=== PATIENT | male | born 1945 | race Caucasian/White ===

== ENCOUNTER 2018-09-25 20:21 | Outpatient (REF) | payer MEDICARE, SELFPAY ==
[2018-09-25 21:00] LABS: COMMENT (LAB VIEW ONLY) 241.12 mg/dL; Microalb ug/mg Crea 5.6 ug/mg Cr
== END 2018-09-25 20:41 ==
LOC: NCHCN 20:21
PROVIDERS: PCP Internal Medicine; Visit Provider Internal Medicine
DX: I10 Essential (primary) hypertension (principal); E78.5 Hyperlipidemia, unspecified; E11.9 Type 2 diabetes mellitus without complications
CPT/HCPCS: 82043; 82570

== ENCOUNTER 2020-04-07 17:27 | Outpatient (REF) | payer MEDICARE, SELFPAY ==
[2020-04-07 21:01] LABS: ALT 19 U/L (16-63); AST 17 U/L (15-37); Albumin 3.7 g/dL (3.4-5.0); Alkaline Phosphatase 56 U/L (46-116); Anion Gap 7.2 mmol/L (3-11); BUN 10 mg/dL (7-18); Bilirubin, Total 0.5 mg/dL (0.2-1.0); CO2 29.8 mmol/L (21.0-32.0); CREATININE 0.93 mg/dL (0.70-1.30); Calcium 8.8 mg/dL (8.5-10.1); Chloride 102 mmol/L (98-107); Glucose 117 mg/dL (74-106); Potassium 4.2 mmol/L (3.5-5.1); Sodium 139 mmol/L (136-145); TSH 0.95 uIU/mL (0.36-3.74); Total Protein 6.6 g/dL (6.4-8.2)
== END 2020-04-07 17:47 ==
LOC: NCHCN 17:27
PROVIDERS: PCP Internal Medicine; Visit Provider Internal Medicine
DX: E11.9 Type 2 diabetes mellitus without complications (principal); G47.00 Insomnia, unspecified; G47.33 Obstructive sleep apnea (adult) (pediatric); E66.9 Obesity, unspecified
CPT/HCPCS: 80053; 84443

== ENCOUNTER 2020-07-19 16:56 | Outpatient (REF) | payer MEDICARE, SELFPAY ==
[2020-07-19 19:15] LABS: HCT 43.6 % (40.0-50.0); HGB 14.1 g/dL (13.5-17.5); MCH 30.5 pg (27.0-33.0); MCHC 32.3 % (32.0-36.0); MCV 94.4 fL (80-95); MPV 10.5 fL (8.0-11.0); Platelet Count 304 10^3/uL (130-400); RBC 4.62 10^6/uL (4.36-5.78); RDW 14.1 % (11.8-14.1); RDW-SD 48.9 fL; WBC 9.59 10^3/uL (4.4-10.8)
[2020-07-19 19:19] LABS: NT-proBNP 189 pg/mL (<300)
[2020-07-19 19:46] LABS: D-Dimer 586 ng/mlFEU (<500)
== END 2020-07-19 17:16 ==
LOC: NCHCN 16:56
PROVIDERS: PCP Internal Medicine; Visit Provider Internal Medicine
DX: R06.09 Other forms of dyspnea (principal); R00.0 Tachycardia, unspecified
CPT/HCPCS: 85027; 83880; 85379

== ENCOUNTER 2021-02-04 21:13 | Outpatient (REF) | payer MEDICARE, SELFPAY ==
[2021-02-04 19:43] LABS: COMMENT (LAB VIEW ONLY) 177.69 mg/dL; Microalb ug/mg Crea 5.5 ug/mg Cr
== END 2021-02-04 21:14 | disposition home or self-care (01) ==
LOC: NCHCN 21:13
PROVIDERS: PCP Internal Medicine; Visit Provider Internal Medicine
DX: R00.0 Tachycardia, unspecified (principal); G47.33 Obstructive sleep apnea (adult) (pediatric); I10 Essential (primary) hypertension; E11.9 Type 2 diabetes mellitus without complications
CPT/HCPCS: 82043; 82570

== ENCOUNTER 2021-08-04 12:04 | Outpatient (REF) | payer MEDICARE, SELFPAY ==
[2021-08-04 19:30] LABS: ALT 20 U/L (16-63); Anion Gap 10.9 mmol/L (3-11); BUN 15 mg/dL (7-18); CO2 29.1 mmol/L (21.0-32.0); CREATININE 1.3 mg/dL (0.70-1.30); Calculated LDL 74 mg/dL (<100); Chloride 102 mmol/L (98-107); Cholesterol 153 mg/dL (<200); Estimated GFR 53.82 (mL/min/1.73m2); Glucose 120 mg/dL (74-106); HDL Cholesterol 45 mg/dL (40-60); Potassium 4.4 mmol/L (3.5-5.1); Sodium 142 mmol/L (136-145); Triglyceride 170 mg/dL (<150)
== END 2021-08-04 12:05 | disposition home or self-care (01) ==
LOC: NCHCN 12:04
PROVIDERS: PCP Internal Medicine; Visit Provider Internal Medicine
DX: E11.9 Type 2 diabetes mellitus without complications (principal); R00.0 Tachycardia, unspecified; E66.9 Obesity, unspecified
CPT/HCPCS: 80048; 80061; 84460

== ENCOUNTER 2021-09-29 19:04 | Outpatient (REF) | payer MEDICARE, SELFPAY ==
[2021-09-29 20:02] LABS: ALT 19 U/L (16-63); AST 12 U/L (15-37); Albumin 3.9 g/dL (3.4-5.0); Alkaline Phosphatase 78 U/L (46-116); Anion Gap 9.7 mmol/L (3-11); BUN 16 mg/dL (7-18); Bilirubin, Total 0.4 mg/dL (0.2-1.0); CO2 28.3 mmol/L (21.0-32.0); CREATININE 1.1 mg/dL (0.70-1.30); Calcium 9.4 mg/dL (8.5-10.1); Chloride 102 mmol/L (98-107); Glucose 119 mg/dL (74-106); Potassium 4.3 mmol/L (3.5-5.1); Sodium 140 mmol/L (136-145); Total Protein 7.1 g/dL (6.4-8.2); Vitamin B12 201 pg/mL (193-986)
== END 2021-09-29 19:05 | disposition home or self-care (01) ==
LOC: NCHCN 19:04
PROVIDERS: PCP Internal Medicine; Visit Provider Internal Medicine
DX: G31.84 Mild cognitive impairment of uncertain or unknown etiology (principal)
CPT/HCPCS: 80053; 82607

== ENCOUNTER 2021-10-31 00:21 | Outpatient (CLI) | payer MEDICARE, SELFPAY ==
--- NOTE | 2021-10-31 | DI.MRI_ITS ---
Exam(s) MR BRAIN WO EXAM: MR BRAIN WO CLINICAL HISTORY: ALZHEIMERS DISEASE,G30.9 TECHNIQUE: Multiplanar multisequence MRI of the brain was performed. COMPARISON: No exams were available for comparison FINDINGS: There is moderate to severe diffuse cerebral atrophy. No intracranial hemorrhage, mass or acute infa rct is seen. The ventricular size is normal for degree of atrophy. Minimal there are minimal white matter changes of small vessel disease. There is sinus mucosal thickening and thickening of the nasa l mucosa.. No air-fluid levels. The vascular flow voids appear intact. IMPRESSION: Atrophy. No acute abnormality. DATA REPOSITORY:
== END 2021-10-31 00:41 ==
PROVIDERS: PCP Internal Medicine; Visit Provider Internal Medicine
DX: G30.8 Other Alzheimer's disease (principal); G31.89 Other specified degenerative diseases of nervous system
CPT/HCPCS: 70551

== ENCOUNTER 2022-08-10 16:36 | Outpatient (REF) | payer MEDICARE, SELFPAY ==
[2022-08-10 19:11] LABS: ALT 22 U/L (16-63); Anion Gap 10.9 mmol/L (3-11); BUN 12 mg/dL (7-18); CO2 28.1 mmol/L (21.0-32.0); CREATININE 1.2 mg/dL (0.70-1.30); Calcium 9.4 mg/dL (8.5-10.1); Calculated LDL 106 mg/dL (<100); Chloride 100 mmol/L (98-107); Cholesterol 178 mg/dL (<200); Estimated GFR 62.67 (mL/min/1.73m2); Glucose 251 mg/dL (74-106); HDL Cholesterol 43 mg/dL (40-60); Potassium 3.8 mmol/L (3.5-5.1); Sodium 139 mmol/L (136-145); Triglyceride 147 mg/dL (<150)
[2022-08-10 19:36] LABS: Creatine Kinase 129 U/L (39-308)
== END 2022-08-10 16:37 | disposition home or self-care (01) ==
LOC: NCHCN 16:36
PROVIDERS: PCP Internal Medicine; Visit Provider Internal Medicine
DX: I10 Essential (primary) hypertension (principal); E11.9 Type 2 diabetes mellitus without complications; G30.9 Alzheimer's disease, unspecified
CPT/HCPCS: 80048; 80061; 82550; 84460

== ENCOUNTER 2023-05-23 17:32 | Outpatient (REF) | payer MEDICARE, SELFPAY ==
[2023-05-23 21:50] LABS: HCT 46.1 % (40.0-50.0); HGB 15.1 g/dL (13.5-17.5); MCH 27.9 pg (27.0-33.0); MCHC 32.8 % (32.0-36.0); MCV 85 fL (80-95); MPV 10.4 fL (8.0-11.0); Platelet Count 339 10^3/uL (130-400); RBC 5.42 10^6/uL (4.36-5.78); RDW-SD 43.1 fL; WBC 11.41 10^3/uL (4.4-10.8)
[2023-05-23 22:09] LABS: Anion Gap 6.7 mmol/L (3-11); BUN 16 mg/dL (7-18); CO2 29.3 mmol/L (21.0-32.0); Calcium 9.2 mg/dL (8.5-10.1); Calculated LDL 62 mg/dL (<100); Chloride 103 mmol/L (98-107); Cholesterol 124 mg/dL (<200); Glucose 138 mg/dL (74-106); HDL Cholesterol 42 mg/dL (40-60); Potassium 3.6 mmol/L (3.5-5.1); Sodium 139 mmol/L (136-145); Triglyceride 101 mg/dL (<150)
[2023-05-23 22:48] LABS: COMMENT (LAB VIEW ONLY) 111.16 mg/dL; Microalb ug/mg Crea 4.3 ug/mg Cr
== END 2023-05-23 17:33 | disposition home or self-care (01) ==
LOC: NCHCN 17:32
PROVIDERS: PCP Internal Medicine; Visit Provider Internal Medicine
DX: I10 Essential (primary) hypertension (principal); E78.5 Hyperlipidemia, unspecified; E11.9 Type 2 diabetes mellitus without complications
CPT/HCPCS: 80048; 80061; 85027; 82043; 82570

== ENCOUNTER 2023-12-28 11:31 | Outpatient (REF) | payer MEDICARE, SELFPAY ==
[2023-12-28 19:48] LABS: ALT 23 U/L (16-63); AST 19 U/L (15-37); Albumin 3.6 g/dL (3.4-5.0); Alkaline Phosphatase 128 U/L (46-116); Anion Gap 10.4 mmol/L (3-11); BUN 11 mg/dL (7-18); Bilirubin, Total 0.6 mg/dL (0.2-1.0); CO2 24.6 mmol/L (21.0-32.0); Calculated LDL 77 mg/dL (<100); Chloride 103 mmol/L (98-107); Cholesterol 143 mg/dL (<200); Estimated GFR 77.52 (mL/min/1.73m2); Glucose 356 mg/dL (74-106); HDL Cholesterol 42 mg/dL (40-60); Potassium 4.3 mmol/L (3.5-5.1); Sodium 138 mmol/L (136-145); Total Protein 7.4 g/dL (6.4-8.2); Triglyceride 121 mg/dL (<150)
== END 2023-12-28 11:32 | disposition home or self-care (01) ==
LOC: NCHCN 11:31
PROVIDERS: PCP Internal Medicine; Visit Provider Internal Medicine
DX: I10 Essential (primary) hypertension (principal)
CPT/HCPCS: 80053; 80061

== ENCOUNTER 2024-07-31 10:54 | Outpatient (REF) | payer MEDICARE, SELFPAY ==
[2024-07-31 19:40] LABS: COMMENT (LAB VIEW ONLY) 99.14 mg/dL; Microalb ug/mg Crea 4.6 ug/mg Cr
== END 2024-07-31 10:55 | disposition home or self-care (01) ==
LOC: NCHCN 10:54
PROVIDERS: PCP Internal Medicine; Visit Provider Internal Medicine
DX: I10 Essential (primary) hypertension (principal)
CPT/HCPCS: 82043; 82570

== ENCOUNTER 2024-12-12 16:22 | Outpatient (REF) | payer MEDICARE, SELFPAY ==
[2024-12-12 19:16] LABS: ALT 13 U/L (16-63); AST 17 U/L (15-37); Albumin 3.4 g/dL (3.4-5.0); Alkaline Phosphatase 118 U/L (46-116); Anion Gap 5.3 mmol/L (3-11); BUN 10 mg/dL (7-18); Bilirubin, Total 0.5 mg/dL (0.2-1.0); CO2 31.7 mmol/L (21.0-32.0); Calcium 9.5 mg/dL (8.5-10.1); Calculated LDL 55 mg/dL (<100); Chloride 105 mmol/L (98-107); Cholesterol 109 mg/dL (<200); Estimated GFR 77.04 (mL/min/1.73m2); Glucose 87 mg/dL (74-106); HDL Cholesterol 41 mg/dL (>or=40); Potassium 4.8 mmol/L (3.5-5.1); Sodium 142 mmol/L (136-145); Total Protein 7.6 g/dL (6.4-8.2); Triglyceride 68 mg/dL (<150)
[2024-12-12 19:29] LABS: COMMENT (LAB VIEW ONLY) 150.87 mg/dL; Microalb ug/mg Crea 4.6 ug/mg Cr
[2024-12-14 10:10] LABS: HIV-1/2 Ag & Ab Screen Negative (Negative)
[2024-12-15 10:28] LABS: Hepatitis C Ab w Rflx HCV PCR Negative (Negative)
== END 2024-12-12 16:23 | disposition home or self-care (01) ==
LOC: NCHCN 16:22
PROVIDERS: PCP Internal Medicine; Visit Provider Internal Medicine
DX: E11.9 Type 2 diabetes mellitus without complications (principal); I10 Essential (primary) hypertension; E78.5 Hyperlipidemia, unspecified; Z11.4 Encounter for screening for human immunodeficiency virus [HIV]
CPT/HCPCS: 80053; 80061; 86803; 87389; 82043; 82570

== ENCOUNTER 2025-06-24 18:46 | Outpatient (REF) | payer MEDICARE, SELFPAY ==
[2025-06-24 20:30] LABS: HCT 35.3 % (40.0-50.0); HGB 10.4 g/dL (13.5-17.5); MCH 20.8 pg (27.0-33.0); MCHC 29.5 % (32.0-36.0); Platelet Count 373 10^3/uL (130-400); RBC 5.01 10^6/uL (4.36-5.78); RDW 19.4 % (11.8-14.1); RDW-SD 47.4 fL; WBC 11.37 10^3/uL (4.4-10.8)
[2025-06-24 20:43] LABS: ALT 15 U/L (16-63); AST 20 U/L (15-37); Albumin 3.3 g/dL (3.4-5.0); Alkaline Phosphatase 152 U/L (46-116); Anion Gap 10.8 mmol/L (3-11); BUN 7 mg/dL (7-18); Bilirubin, Total 0.5 mg/dL (0.2-1.0); CO2 26.2 mmol/L (21.0-32.0); Calcium 9.8 mg/dL (8.5-10.1); Chloride 99 mmol/L (98-107); Estimated GFR 68.29 (mL/min/1.73m2); Glucose 202 mg/dL (74-106); Potassium 5.5 mmol/L (3.5-5.1); Sodium 136 mmol/L (136-145); Total Protein 8.0 g/dL (6.4-8.2)
[2025-06-24 20:54] LABS: MCV 71 fL (80-95); MPV 10.1 fL (8.0-11.0)
[2025-06-25 18:36] LABS: CEA 1.0 ng/mL (See Note)
== END 2025-06-24 18:47 | disposition home or self-care (01) ==
LOC: NCHCN 18:46
PROVIDERS: PCP Internal Medicine; Visit Provider Internal Medicine
DX: C18.9 Malignant neoplasm of colon, unspecified (principal)
CPT/HCPCS: 80053; 85027; 82378

== ENCOUNTER 2025-08-03 19:47 | Outpatient (REF) | payer MEDICARE, SELFPAY ==
[2025-08-03 21:06] LABS: Vitamin B12 485 pg/mL (193-986)
[2025-08-07 10:36] LABS: 1,25-Dihydroxyvitamin D 24 pg/mL (18-64)
== END 2025-08-03 19:48 | disposition home or self-care (01) ==
LOC: NCHCN 19:47
PROVIDERS: PCP Internal Medicine; Visit Provider Internal Medicine
DX: E55.9 Vitamin D deficiency, unspecified (principal); G30.9 Alzheimer's disease, unspecified
CPT/HCPCS: 82607; 82652

== ENCOUNTER 2025-08-03 19:48 | Outpatient (REF) | payer MEDICARE, SELFPAY ==
[2025-08-03 20:36] LABS: Abs Immature Grans 0.04 10^3/uL (0.0-0.06); HCT 37.7 % (40.0-50.0); HGB 11.2 g/dL (13.5-17.5); Immature Grans % 0.4 %; MCH 20.6 pg (27.0-33.0); MCHC 29.7 % (32.0-36.0); MCV 69 fL (80-95); MPV 10.6 fL (8.0-11.0); RBC 5.43 10^6/uL (4.36-5.78); RDW 17.8 % (11.8-14.1); RDW-SD 42.6 fL; WBC 10.90 10^3/uL (4.4-10.8)
[2025-08-03 20:40] LABS: Iron 20 ug/dL (65-175); Total Iron Binding Capacity 380 ug/dL (250-450); Transferrin Sat 5 % (20-55)
[2025-08-03 20:48] LABS: ALT 23 U/L (16-63); AST 20 U/L (15-37); Albumin 3.4 g/dL (3.4-5.0); Alkaline Phosphatase 129 U/L (46-116); Anion Gap 8.6 mmol/L (3-11); BUN 10 mg/dL (7-18); Bilirubin, Total 0.6 mg/dL (0.2-1.0); CO2 25.4 mmol/L (21.0-32.0); Calcium 9.7 mg/dL (8.5-10.1); Chloride 97 mmol/L (98-107); Ferritin 23 ng/mL (26-388); Glucose 314 mg/dL (74-106); Potassium 5.2 mmol/L (3.5-5.1); Sodium 131 mmol/L (136-145); Total Protein 8.0 g/dL (6.4-8.2)
[2025-08-03 21:16] LABS: Anisocytosis 1+; Hypochromasia 1+; Microcytosis 2+; Platelet Count 440 10^3/uL (130-400); Poikilocytes 1+
[2025-08-04 18:47] LABS: CEA 1.3 ng/mL (See Note)
== END 2025-08-03 19:49 | disposition home or self-care (01) ==
LOC: LBN 19:48
PROVIDERS: PCP Internal Medicine; Visit Provider Internal Medicine Hematology & Oncology
DX: C18.6 Malignant neoplasm of descending colon (principal); D50.9 Iron deficiency anemia, unspecified
CPT/HCPCS: 80053; 82378; 82728; 83540; 83550; 85025